=== PATIENT | female | born 1990 | race Caucasian/White ===

== ENCOUNTER → 2021-01-27 18:06 | Outpatient (CLI) | payer OTHER, SELFPAY ==
[2021-01-27 18:27] LABS: Basophils % 0.4 % (0.1-2.0); Eosinophils # 0.2 K/mm3 (0.0-0.4); Eosinophils % 1.9 % (0.1-12.0); Hemoglobin 14.3 g/dL (12.2-16.2); Lymphocytes # 2.3 K/mm3 (0.7-4.5); Lymphocytes % 26.6 % (10-50); Mean Corpuscular HGB Conc 33.3 g/dL (31.8-35.4); Mean Corpuscular Hemoglobin 30.5 pg (27.0-31.2); Mean Corpuscular Volume 91.4 fl (81-99); Mean Platelet Volume 8.5 fl (7.4-10.4); Monocytes # 0.6 K/mm3 (0.1-1.0); Monocytes % 6.3 % (1.7-9.3); Neutrophils # 5.7 K/mm3 (1.8-7.8); Neutrophils % 64.7 % (37.0-80.0); Platelet Count 270 K/mm3 (142-424); Red Cell Distribution Width 12.8 % (11.5-17.5); White Blood Count 8.7 K/mm3 (4.8-10.8)
[2021-01-27 19:55] LABS: Alanine Aminotransferase 22 U/L (12-78); Albumin/Globulin Ratio 1.4 (1.1-1.8); Alkaline Phosphatase 89 U/L (38-126); Anion Gap 16.5 mEq/L (5-15); Aspartate Amino Transferase 31 U/L (14-36); Bilirubin,Total 0.4 mg/dl (0.2-1.3); Blood Urea Nitrogen 15 mg/dl (7-17); Calcium 9.8 mg/dl (8.4-10.2); Carbon Dioxide 19 mmol/L (22.0-30.0); Chloride 109 mmol/L (98-107); Chol/HDL Ratio 3.8 (1-3.5); Cholesterol 225 mg/dl (140-200); Estimated Glomerular Filt Rate 73 ml/min (>60); GFR (African American) 88 ML/MIN (>60); Globulin 3.5 g/dL (1.3-3.2); Glucose 83 mg/dl (74-100); HDL Cholesterol 59 mg/dl (40-60); Potassium 4.5 mmoL/L (3.5-5.1); Sodium 140 mmol/L (136-145); Total Protein,Serum 8.5 g/dl (6.3-8.2); Triglycerides 178 mg/dl (30-150); VLDL Cholesterol 36 mg/dL (0-40)
[2021-01-27 20:06] LABS: Direct LDL Cholesterol 124.14 mg/dL (100-129)
[2021-01-27 20:12] LABS: T4 (Thyroxine) 7.3 ug/dl (5.53-11.0)
[2021-01-27 20:26] LABS: Thyroid Stimulating Hormone 1.09 uIU/mL (0.465-4.68)
[2021-02-03 11:12] LABS: Testosterone, Total, LC/MS 22.5 ng/dL (10.0-55.0)
[2021-02-03 11:38] LABS: Estrogen 240 pg/mL (.); Testosterone,Free 1.7 pg/mL (0.0-4.2)
== END ==
LOC: LAB.DROPOF 18:06
PROVIDERS: Visit Provider Family Medicine
DX: E34.9 Endocrine disorder, unspecified (principal)
CPT/HCPCS: 80053; 80061; 82533; 82672; 84402; 84403; 84436; 84443; 85025